=== PATIENT | male | born 1990 | race Caucasian/White ===

== ENCOUNTER 2025-10-01 08:12 | Emergency (ER) | payer SELFPAY ==
[~2025-10-01] VITALS: Ht 195.6 cm; Wt 104.3 kg
[2025-10-01] MEDS ORDERED: Amoxicillin875 MG PO (09:02)
[2025-10-01] MEDS ORDERED: RX Prepack 6 Tabs Oxycodone 5mg UD ONE (09:05)
== END 2025-10-01 09:02 | disposition home or self-care (01) ==
LOC: ER 08:12
DX: K04.7 Periapical abscess without sinus (principal); Z59.89 Other problems related to housing and economic circumstances; Z79.2 Long term (current) use of antibiotics
CPT/HCPCS: 99282; A9270